=== PATIENT | male | born 1945 | race Caucasian/White ===

== ENCOUNTER 2023-01-23 09:19 | Emergency (ER) | payer MEDICARE, SELFPAY ==
[2023-01-23 09:31] VITALS: BP 149/64; PULSE 63; RESP 20; TEMP 36.4; O2SAT 98
--- NOTE | 2023-01-23 09:33 | ED.DIZZY ---
HPI - Dizziness General Chief Complaint: Dizziness Stated Complaint: Dizzy Time Seen by Provider: 01/23/23 09:55 Mode of arrival: ambulatory Limitations: no limitations History of Present Illness HPI Narrative: 77-year-old male presents with concern for dizziness. Reports symptoms started on Thursday when he began having left-sided neck stiffness, then he began feeling dizzy when he turned his head to the left. He reports he applied heat to the neck which did not improve his symptoms. Reports he is taking Tylenol for the stiffness. He reports he has meclizine prescription because he has history of vertigo, he has been using that because this dizziness is causing him to feel nauseated. He denies any neck injury or trauma. Denies any history of neck problems. He denies weakness in any extremity. He denies difficulty speaking or swallowing. Reports he mostly feels dizzy when he turns his head. He reports if he is looking straight he does not feel dizzy. MD elicited complaint: dizziness Related Data Home Medications Medication Instructions Recorded Confirmed amlodipine 2.5 mg tablet 2.5 mg PO DAILY 01/23/23 01/23/23 aspirin 81 mg tablet 81 mg PO DAILY 01/23/23 01/23/23 atorvastatin 80 mg tablet 80 mg PO DAILY 01/23/23 01/23/23 cetirizine 10 mg tablet (Zyrtec) 10 mg PO DAILY 01/23/23 01/23/23 citalopram 40 mg tablet 40 mg PO DAILY 01/23/23 01/23/23 levothyroxine 175 mcg tablet 175 mcg PO DAILY 01/23/23 01/23/23 lisinopril 40 mg tablet 40 mg PO DAILY 01/23/23 01/23/23 meclizine 12.5 mg tablet 12.5 mg PO TID PRN Dizziness 01/23/23 01/23/23 metoprolol succinate 25 mg 25 mg PO DAILY 01/23/23 01/23/23 tablet,extended release 24 hr Allergies Allergy/AdvReac Type Severity Reaction Status Date / Time codeine Allergy Mild Palpitation Verified 01/23/23 09:44 s Review of Systems Review of Systems: CONSTITUTIONAL: Denies malaise, chills, sweats, or fever. EYES: Denies visual changes ENT: Denies rhinorrhea, congestion, sinus pain, otalgia or sore throat. CARDIOVASCULAR: Denies chest pain, palpitations, or edema. RESPIRATORY: Denies cough or dyspnea. GASTROINTESTINAL: Denies abdominal pain, vomiting, diarrhea. Reports nausea SKIN: Denies rash or itching. MUSCULOSKELETAL: Denies back pain, joint pain, or myalgia. NEUROLOGIC: Denies numbness, weakness, or headache. Reports dizziness PSYCHIATRIC: Denies anxiety or depression. All systems reviewed & are unremarkable except as noted in HPI and below PMFSH Comments At time of signature, agree with nursing past medical, surgical, social and family history. There is no relevant family history pertinent to the presenting complaint Exam Narrative: GENERAL: Well-appearing, well-nourished, and in no acute distress. HEAD: Normocephalic, atraumatic. EYES: PERRLA, sclera clear, and EOMI. No nystagmus. ENT: Nares clear, turbinates pink, no rhinorrhea or epistaxis. Mucous membranes moist. TM pearly maharaj with sharp light reflex bilaterally; no tragal tenderness. NECK: Supple. No lymphadenopathy. No jugular venous distension, thyromegaly, or carotid bruits. Carotids were easily palpable bilaterally. CHEST: No respiratory distress. Clear to auscultation. No bony deformities, no asymmetry. Speaks in full sentences. HEART: Regular rate and rhythm. No murmur heard. Normal peripheral pulses. EXTREMITIES: Normal range of motion. No edema. Normal strength and sensation. SKIN: Warm, dry, no visible rash. NEURO: Alert and oriented x3. No focal deficits. Cranial nerves II through XII grossly intact. [place]-Hallpike test positive on the right. Head impulse test and testing of skew unremarkable PSYCH: Normal mood and affect Course Course Emergency Course: Patient's exam is not currently concerning for any central causes of vertigo, however I explained the patient that without further evaluation I cannot rule out with certainty any serious causes of his dizziness. I offered patient transfer to
[2023-01-23 09:47] VITALS: BP 149/64; PULSE 63; RESP 20; TEMP 36.4; O2SAT 98
== END 2023-01-23 10:14 | disposition home or self-care (01) ==
PROVIDERS: Emergency Provider Nurse Practitioner; PCP Internal Medicine Infectious Disease
DX: R42 Dizziness and giddiness (principal); M43.6 Torticollis; E78.00 Pure hypercholesterolemia, unspecified; I10 Essential (primary) hypertension; E03.9 Hypothyroidism, unspecified; I25.10 Atherosclerotic heart disease of native coronary artery without angina pectoris; Z95.5 Presence of coronary angioplasty implant and graft; F32.A Depression, unspecified; Z79.82 Long term (current) use of aspirin
CPT/HCPCS: 99213; G0463

== ENCOUNTER 2023-07-03 12:07 | Outpatient (CLI) | payer MEDICARE, SELFPAY ==
--- NOTE | ~2023-07-03 | PE_ITS ---
EXAMINATION: PET_PETPSMAST_PT DATE: 07/03/2023 14:29 INDICATION: Prostate cancer TECHNIQUE: 10.418 mCi of pipflufolastat F-18 (18-F-DCFPyL) was administered i.v. Low dose computed t omography (CT) images were acquired from the base of the brain to the base of the brain to the proxim al thighs for attenuation correction and anatomic localization. Positron emission tomography (PET) im ages were acquired in the same distribution beginning 93 minutes after injection. Images including fu sed PET/CT images were reconstructed in axial, coronal, and sagittal planes. Automated exposure contr ol technique was employed. The dose-length product was 982.57mGy-cm. COMPARISON: None FINDINGS: Head/neck: Typical pattern of symmetric physiologic increased activity in the lacrimal, parotid and submandibula r glands as well as along the mucosa of the nasal and oral cavities, the ja-, naso- and hypopharynx, the glottis and esophagus. There is also a typical pattern of symmetric tiny foci of mild likely phy siologic neural ganglia uptake at a few bilateral cervical neural foramina. No pathologically enlarge d cervical lymphadenopathy or suspicious foci of increased uptake in the visualized head or neck. Chest: Mild emphysema. There is diffuse dependent predominant groundglass opacities in both lungs most likel y mild atelectasis related to expiratory phase of imaging. There is additional linear discoid atelect asis at both lung bases. Calcified left lower lobe nodule and calcified left hilar lymph nodes consis tent with old granulomatous disease. Cardiomegaly. Atherosclerotic coronary artery calcifications. Ao rtic valve calcific location. No pericardial effusion. Thoracic aorta is normal in caliber. No pathol ogically enlarged or PSMA avid thoracic lymphadenopathy. Abdomen/pelvis/proximal thighs: 1.4 cm cyst at the lower pole the right kidney. Physiologic renal accumulation and excretion of activ ity in the kidneys, bladder and along portions of ureters. There is a small bladder diverticulum slig htly anterior to the left ureterovesicular junction. Status post prostatectomy. There is a small focu s of mild increased activity with maximal SUV of 4.2 at the right posterior inferior margin of the bl adder in the region of the inferior aspect of the right seminal vesicle which appears more caudal and posterior than the right ureterovesicular junction which raises concern for residual locally invasiv e disease. Normal degree and slightly heterogenous pattern of increased uptake throughout the liver a nd spleen without radiologic correlate or dominant PSMA avid lesion. There are several calcified gall stones within the decompressed gallbladder. The pancreas and bilateral adrenal glands are normal. Mod erate uptake scattered throughout the bowels with typical duodenal and proximal jejunal predominance and without radiologic correlate, also likely physiologic. There is prominent sigmoid colon predomina nt diverticulosis without adjacent comparison to suggest diverticulitis. Infrarenal aortic ectasia me asuring 3.8 x 4.2 cm with aortobiiliac stenting. Small fat-containing umbilical hernia. Small fat-con taining left inguinal hernia. Suggestion of prior right inguinal hernia repair. No free intraperitone al gas or fluid. No other abnormal foci of increased uptake or pathologically enlarged lymphadenopat hy in the abdomen, pelvis or proximal thighs. Musculoskeletal: Mild S-shaped curvature of the lumbar and lower thoracic spine with severe spondylosis. There are cou ple tiny sclerotic bone islands without abnormal PSMA activity at the right femoral head. There are n o suspicious lytic, blastic or PSMA avid bone lesions to suggest metastatic disease. There are few fo ci of uptake in the skin surface at the right forearm and nasal fossa likely related to skin contamin ation at the site of the radiopharmaceutical injection. IMPRESSION: 1. Small focus of mild upta
== END 2023-07-03 12:08 | disposition home or self-care (01) ==
PROVIDERS: PCP Internal Medicine Infectious Disease; Visit Provider Urology
DX: C61 Malignant neoplasm of prostate (principal)
CPT/HCPCS: 78815; A9595

== ENCOUNTER 2023-08-12 10:59 | Emergency (ER) | payer MEDICARE, SELFPAY ==
[2023-08-12] VITALS (17 sets, daily range): BP systolic 101–133; BP diastolic 44–77; PULSE 64–104; RESP 14–19; TEMP 36.3; O2SAT 93–100
--- NOTE | ~2023-08-12 | CT_ITS ---
EXAMINATION: CT brain wo con INDICATION: Mental status change, history of intracranial aneurysm COMPARISON: None TECHNIQUE: Standard unenhanced head CT. The dose-length product (DLP) was 983.67 mGy-cm. The mA was a djusted according to patient size. Iterative reconstruction technique was employed. FINDINGS: No acute intraparenchymal hemorrhage. No evidence of mass lesion. No evidence of acute infa rction. There is a prior infarction in the left frontal lobe. There is mild periventricular and subco rtical hypodensity probably related to small vessel ischemic disease. Embolization coils about the ri [facility] internal carotid artery. There is mild prominence of the sulci and ventricles related to cerebral atrophy. Intracranial calcified cerebral atherosclerosis is noted. No extra-axial collections. No ma ss effect or midline shift. The orbits and soft tissues are unremarkable. There is a 2 cm bone lesion in the skull base situated between the sphenoid sinuses and inferior frontal lobes which demonstrate s peripheral sclerosis and central groundglass attenuation. 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 The visualized sinuses and mastoid air cells are well aerated. IMPRESSION: 1. Areas of prior infarction without acute intracranial abnormality. 2. Age related findings. Reviewed, dictated and finalized at location B. ROAD DETECTIVE
--- NOTE | ~2023-08-12 | XR_ITS ---
EXAMINATION: XR chest 2V DATE: 08/12/2023 11:53 INDICATION: Chest pain and shortness of breath TECHNIQUE: AP and lateral views of the chest are obtained. COMPARISON: None available FINDINGS: There is scarring of the lung apices. There are minimal airspace opacities of the lung base s. No pleural effusion or pneumothorax. The cardiomediastinal silhouette is normal. There is severe t horacic spondylosis. IMPRESSION: 1. Bibasilar airspace opacities, consistent with atelectasis versus pneumonia. Reviewed, dictated and finalized at location B. NETWORK ENGINEER
--- NOTE | 2023-08-12 11:03 | ECG_ITS ---
Measurements Intervals [place] Rate: 70 P: 38 [place]: 175 QRS: -77 QRSD: 150 T: 42 QT: 441 QTc: 476 Interpretive Statements SINUS RHYTHM ATRIAL PREMATURE COMPLEXES RIGHT BUNDLE BRANCH BLOCK LEFT ANTERIOR FASCICULAR BLOCK BASELINE ARTIFACT- II, III, AVR, AVL, AVF, V6 ABNORMAL ECG NO PREVIOUS ECG AVAILABLE FOR COMPARISON Electronically Signed On 08-12-2023 11:15:57 ACCOUNTING INSTRUCTOR by Gal Chan D.O.
--- NOTE | 2023-08-12 11:14 | ED.CHESTPAIN ---
HPI - Chest Pain General Chief Complaint: Chest Pain Stated Complaint: SOB, CP resolved Time Seen by Provider: 08/12/23 11:11 History of Present Illness HPI narrative: Patient is a 78-year-old male, alert oriented x1 at baseline here after experiencing chest pain while he was at [facility]. He was apparently working with the rehab providers when he started experiencing chest pain and shortness of breath and he was sent into the emergency department for evaluation. He is reportedly in rehab center for prior intracranial hemorrhage. For rehab documentation he has a history of a nontraumatic intracerebral hemorrhage, hypertension, hyperlipidemia, hypothyroidism, anxiety disorder, CAD. Patient is unsure of why he is here. When prompting questions about chest pain he does note that he was experiencing some earlier but denies any chest pain or shortness of breath at this time. Related Data Home Medications Medication Instructions Recorded Confirmed aspirin 81 mg tablet 81 mg PO DAILY 01/23/23 08/01/23 atorvastatin 80 mg tablet 80 mg PO DAILY 01/23/23 08/01/23 cetirizine 10 mg tablet (Zyrtec) 10 mg PO DAILY 01/23/23 08/01/23 citalopram 40 mg tablet 40 mg PO DAILY 01/23/23 08/01/23 levothyroxine 175 mcg tablet 150 mcg PO DAILY 01/23/23 01/23/23 lisinopril 40 mg tablet 40 mg PO DAILY 01/23/23 08/01/23 metoprolol succinate 25 mg 6.25 mg PO BID 01/23/23 01/23/23 tablet,extended release 24 hr budesonide-formoterol HFA 80 1 puff inhalation BID 08/01/23 08/01/23 mcg-4.5 mcg/actuation aerosol inhaler Allergies Allergy/AdvReac Type Severity Reaction Status Date / Time codeine Allergy Mild Palpitation Verified 01/23/23 09:44 s [facility] Social History Social History Smoking packs per day: 1.5 Smoking cigarettes per day: 30.0 Smoking status: Current every day smoker Tobacco type: cigarettes Spiritual care concerns: No (pt unable to comprehend ?) Course Course Emergency Course: Chart review performed. Patient here from [facility], was having chest pain and shortness of breath during rehab appointment. No chest pain or shortness of breath at this time. Alert and oriented x1 at baseline. Triage vitals normal. Patient seen evaluated, he is largely unsure of what is going on, does endorse some chest pain earlier, is not experiencing any chest pain now. Cardiac workup has been ordered per protocol. Lab work reviewed, CBC grossly normal, mild worsening creatinine. Troponin elevated 0.247, given patient's history of intracranial hemorrhage will hold on ASA and heparin initially. Repeat head CT ordered. CXR shows atelectasis vs pneumonia. CT head shows no acute intracranial hemorrhage or findings. Spoke with patient's DPOA Ms. Arthur at [phone]. His brain aneurysm was in 2009. She saw him in [facility] and he was able to speak with him. He had a brain bleed the night after [facility] Day, he went to [facility], was admitted for about a week and discharged to the rehab facility recently. She would like full care at this time and to proceed with treatment in the setting of his elevated troponin and chest pain. Spoke with Dr. Zimmerman from cardiology who accepts patient for transfer to [facility], awaiting bed. Dr. Zimmerman does not have any additional recommendations, does not believe his presentation is consistent with ACS at this time. Advises no anticoagulation. [facility] updated on up trending troponins, Cardiology where, they will continue to keep patient of the current transfer status. Patient signed out pending transfer to [facility]. Patient transferred to [facility] via EMS. Vital Signs Vital signs: Vital Signs Temperature 97.3 F L 08/12/23 11:03 Pulse Rate 71 08/12/23 11:03 Respiratory Rate 18 08/12/23 11:03 Blood Pressure 120/70 08/12/23 11:03 Pulse Oximetry 100 08/12/23 11:03 Oxygen Delivery Room Air 08/12/23 11:03 Temperature 97.3 F L 08/12/23 11:03 Pulse Rate 74 08/13/23 02:01 Respirato
[2023-08-12 11:26] LABS: Basophils Percent Auto 0.5 % (0.2-1.2); Eosinophils Absolute Auto 0.1 K/mm3 (0-0.3); Hematocrit 32.4 % (42.0-52.0); Hemoglobin 10.9 g/dL (14.0-18.0); Immature Granulocyte Absolute 0.06 K/mm3 (0.00-0.031); Lymphocytes Percent Auto 20.6 % (18.3-44.2); Mean Corpuscular HGB Conc 33.6 g/dl (32-36); Mean Corpuscular Hemoglobin 30.3 pg (26-34); Mean Platelet Volume 9.3 fl (7.4-10.4); Monocytes Absolute Auto 0.5 K/mm3 (0.1-0.6); Monocytes Percent Auto 7.9 % (2.6-8.5); Neutrophils Absolute Auto 4.4 K/mm3 (1.3-6.7); Platelet Count Result 152 k/mm3 (150-375); Red Cell Distribution Width 14.2 % (11.5-14.5); White Blood Count 6.3 K/mm3 (4.5-10.0)
[2023-08-12 11:37] LABS: Partial Thromboplastin Time 25.5 SECONDS (22.3-36.8); Prothrombin Time 13.2 Seconds (11.1-14.7)
[2023-08-12 11:38] LABS: Alanine Aminotransferase 20 U/L (6-50); Albumin Level 3.9 g/dL (3.5-5.1); Alkaline Phosphatase 80 U/L (38-126); Anion Gap 5 mmol/L (8-16); Aspartate Amino Transferase 29 U/L (17-59); Bilirubin,Total 1.2 mg/dL (0.2-1.3); Blood Urea Nitrogen 37 mg/dL (9-20); Calcium 9.6 mg/dL (8.4-10.2); Carbon Dioxide 22 mmol/L (22-30); Chloride 105 mmol/L (98-107); Estimated Glomerular Filt Rate 49; Glucose 100 mg/dL (65-110); Lipase 108 U/L (23-300); Potassium 4.7 mmol/L (3.4-5.0); Sodium 132 mmol/L (137-145)
[2023-08-12 11:47] LABS: NT Pro B Type Natriuretic Pept 602 pg/mL (19.9-100)
[2023-08-12 11:54] LABS: Troponin I 0.247 ng/mL (0.000-0.034)
[2023-08-12] MEDS: ASPIRIN 81 MG CHEWABLE TABLET 324 MG PO (12:12)
--- NOTE | 2023-08-12 13:32 | ECG_ITS ---
Measurements Intervals [place] Rate: 66 P: 48 [place]: 174 QRS: -71 QRSD: 155 T: 49 QT: 443 QTc: 464 Interpretive Statements SINUS RHYTHM RIGHT BUNDLE BRANCH BLOCK LEFT ANTERIOR FASCICULAR BLOCK BASELINE ARTIFACT- I, II, III, AVR, AVL, AVF ABNORMAL ECG COMPARED TO ECG 08/12/2023 11:06:18 NO SIGNIFICANT CHANGES Electronically Signed On 08-12-2023 14:10:19 TRENCH SHOVEL OPERATOR by Gal Chan D.O.
[2023-08-12 14:37] LABS: Troponin I 0.357 ng/mL (0.000-0.034)
--- NOTE | 2023-08-12 14:45 | PC.NURSE ---
SITTER AT BEDSIDE TO WATCH PT AND PREVENT FROM GETTING OUT OF BED. HAS BEEN REDIRECTED SEVERAL TIMES. BED ALARM IN PLACE. WILL CONTINUE TO MONITOR
--- NOTE | 2023-08-12 17:17 | ECG_ITS ---
Measurements Intervals [place] Rate: 73 P: 60 [place]: 173 QRS: -67 QRSD: 150 T: 38 QT: 431 QTc: 477 Interpretive Statements SINUS RHYTHM LEFT AXIS DEVIATION RIGHT BUNDLE BRANCH BLOCK CONSIDER INFERIOR INFARCT, AGE INDETERMINATE BASELINE ARTIFACT- II, III ABNORMAL ECG COMPARED TO ECG 08/12/2023 13:38:07 NO SIGNIFICANT CHANGES Electronically Signed On 08-12-2023 20:01:52 GYMNASTIC TEACHER by Gal Chan D.O.
--- NOTE | 2023-08-12 19:28 | PC.NURSE ---
Assumed care of pt. Pt with sitter at bedside and bed alarm on. VSS at this time.
--- NOTE | 2023-08-12 19:58 | PC.NURSE ---
Pt moved over to hospital bed for comfort, gown and depends changed. Pt had been incontinent of urine. Sitter remains at bedside.
[2023-08-13] VITALS: PULSE 70; RESP 25; O2SAT 92
[2023-08-13 01:00] VITALS: PULSE 76; RESP 14; O2SAT 96
[2023-08-13 01:34] VITALS: BP 95/56; PULSE 67; RESP 23
[2023-08-13 02:01] VITALS: BP 95/66; PULSE 74; RESP 17
--- NOTE | 2023-08-13 06:05 | PC.NURSE ---
Pt's daughter, Lizzy (POA) notified of pt's bed assignment at [facility] and consent obtained for transfer.
--- NOTE | 2023-08-13 07:02 | PC.NURSE ---
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 U notified that pt is on the way.
== END 2023-08-13 07:05 | disposition short-term general hospital (02) ==
PROVIDERS: Student in an Organized Health Care Education/Training Program; Emergency Provider Emergency Medicine; PCP Internal Medicine Infectious Disease
DX: R07.9 Chest pain, unspecified (principal); R79.89 Other specified abnormal findings of blood chemistry; F17.210 Nicotine dependence, cigarettes, uncomplicated; I10 Essential (primary) hypertension; E78.5 Hyperlipidemia, unspecified; E03.9 Hypothyroidism, unspecified; F41.9 Anxiety disorder, unspecified; I25.10 Atherosclerotic heart disease of native coronary artery without angina pectoris; R06.02 Shortness of breath; R94.31 Abnormal electrocardiogram [ECG] [EKG]
CPT/HCPCS: 36415; 70450; 71046; 80053; 83690; 83880; 84484; 85025; 85610; 85730; 93005; 99285; A9270